=== PATIENT | male | born 1980 | race African-American/Black ===

== ENCOUNTER 2020-06-27 16:11 | Emergency (ER) | payer OTHER, MEDICAID ==
[~2020-06-27] VITALS: Ht 175.3 cm; Wt 77.5 kg
[2020-06-27 17:10] VITALS: BP 132/84
== END 2020-06-27 17:44 | disposition home or self-care (01) ==
LOC: ER 16:39
DX: S01.81XA Laceration without foreign body of other part of head, initial encounter (principal); G43.909 Migraine, unspecified, not intractable, without status migrainosus; Y04.0XXA Assault by unarmed brawl or fight, initial encounter; Y93.89 Activity, other specified; Y92.89 Other specified places as the place of occurrence of the external cause; Y99.8 Other external cause status
CPT/HCPCS: 99283